=== PATIENT | male | born 1975 | race Caucasian/White ===

== ENCOUNTER 2016-11-24 07:03 | Day surgery (SDC) | payer BC ==
[~2016-11-24] VITALS: Ht 170.2 cm; Wt 86.2 kg
--- NOTE | ~2016-11-24 | O ---
[facility] [place] [address] OPERATIVE REPORT Name: LIBORIO BURNS Room #: 150-7 [facility]..#: [id number] Admission: 11/24/16 Attend Phys: Brian Calvin MD Discharge: Date of : 79 Report #: [id number] THIS REPORT FOR: //name// CC: Narcisa Calvin DATE OF SERVICE: 11/24/2016 PREOPERATIVE DIAGNOSIS: Right knee horizontal lateral meniscus tear with parameniscal cyst. POSTOPERATIVE DIAGNOSIS: Right knee horizontal lateral meniscus tear with parameniscal cyst. PROCEDURES: 1. Right knee arthroscopy with partial lateral meniscectomy. 2. Open excision of right knee parameniscal cyst, lateral. SURGEON: Brian Calvin M.D. INSPECTOR PACKER: Yvonne Pinto PA-C. ANESTHESIA: LMA. TOURNIQUET TIME: Approximately 45 minutes. COMPLICATIONS: None. SPECIMENS: Cystic structure was sent to pathology. CONDITION UPON LEAVING THE OR: Stable. INDICATIONS FOR PROCEDURE: The patient is a 41-year-old gentleman who has had lateral-sided right knee pain. An MRI scan showing him to have a horizontal lateral meniscus tear of the body with a large lateral parameniscal cyst. After discussion with him, he elected for right knee arthroscopy with partial lateral meniscectomy and local excision of the parameniscal cyst. DESCRIPTION OF PROCEDURE: Risks, benefits, alternatives and complications were discussed in detail with the patient, including but not limited to, risk of anesthesia; risk of damage to nerves, arteries, blood vessels; risk for infection, bleeding; risk for continued knee pain and need for reoperation. Informed consent was obtained from the patient. The right knee was appropriately marked in the preoperative holding area. IV Ancef was given for preoperative antibiotics. He was brought to the operating room and placed in the supine position on the operating room table. LMA anesthesia was induced [facility] [address] [place] [address] OPERATIVE REPORT Name: LIBORIO BURNS Room #: 150-7 [facility]..#: [id number] Admission: 11/24/16 Attend Phys: Brian Calvin MD Discharge: Date of : 79 Report #: [id number] without complication. Tourniquet was placed on the right thigh. Right lower extremity was prepped and draped in normal sterile fashion. Timeout was performed properly identifying the patient, procedure as well as the instrumentation. All in the operating room were in agreement. The right lower extremity was exsanguinated, tourniquet was inflated. Tourniquet time was approximately 45 minutes. We decided to excise the cyst first. So, a lateral longitudinal incision was made with 15 blade through the skin. Dissection was taken down to the fascia and a lateral parapatellar incision was made. Upon entering the deep tissues, there was a cystic structure that was dissected out and excised. This was sent to pathology. Attention was then turned to arthroscopy of the knee and a standard anterolateral portal was established through the previous incision and diagnostic arthroscopy was then undertaken. Patellofemoral compartment was visualized and found to be without pathology. Medial gutter was visualized and found to be without pathology. Medial compartment was visualized and a medial portal was established under arthroscopic visualization. Probe was introduced into the medial compartment. There was noted to be intact medial meniscus. The notch was visualized and found to have an intact anterior cruciate ligament. Lateral compartment was visualized and found to have a horizontal-type tear basically from the popliteal hiatus around to the junction of the anterior horn and body of the lateral meniscus. This was then resected with an arthroscopic biter and smoothed back with an oscillating shaver. We essentially took out the anterior half of the body of the lateral meniscus. After this, all fluid was allowed to drain from the knee. The knee was injected with 10 mL of 0.5% Marcaine. The lateral parapatellar arthrotomy was closed with 0 Vicryl, skin was closed with 2-0 Vicryl and 3-0 Monocryl. Steri-Strips were applied. The patient tolerated this procedure well and went to the recovery room under the care of anesthesia postoperatively. <ELECTRONICALLY SIGNED> By: Brian Calvin MD 11/25/16 1147 1203 1248 Brian Calvin MD /nt
--- NOTE | ~2016-11-24 | EKG ---
[address] [address] ELECTROCARDIOGRAM REPORT Name: LIBORIO BURNS Room #: 150-7 [facility].#: [id number] Admission: 11/24/16 Attend Phys: Brian Calvin MD Discharge: Date of : 79 Report #: [id number] THIS REPORT FOR: //name// [facility] Test Date: 2016-11-24 Test Time: 08:14:02 Pat Name: LIBORIO BURNS Department: Room: 150 7 Gender: M Director Of Cardiology Service Line: SAMUEL : 1975 Requested By: Brian Calvin Order Number: [id number] MD: Luís Rios Measurements Intervals [place] Rate: 74 P: 70 ND: 151 QRS: -12 QRSD: 83 T: 17 QT: 351 QTc: 390 Interpretive Statements Sinus rhythm Poor R wave progression No previous ECG available for comparison Electronically Signed On 11-25-2016 8:48:00 CDT by Luís Rios [email or web address] <ELECTRONICALLY SIGNED> By: Luís Rios MD, [facility] 11/25/16 0848 3 Luís Rios MD, FACC /EPI
--- NOTE | ~2016-11-24 | S ---
[facility] [place] [address] SURGICAL PATH RPT PROCEDURE Name: LIBORIO BURNS Room #: DEP [facility]..#: [id number] Admission: 11/24/16 Date of : 79 Discharge: 11/24/16 Report #: [id number] Path Case #: [id number] PATHOLOGY REPORT COLLECTION DATE: 11/24/2016 RECEIVED DATE: 11/24/2016 SUBMITTING PHYS: Dr. Brian Calvin OTHER PHYS: Dr. Narcisa Gardner SPECIMEN(S) RECEIVED: A.Perimeniscal cyst * * * * * * * * * * * * FINAL DIAGNOSIS: Perimeniscal cyst, right knee, excision: - Fragments of cyst lined by thin attenuated epithelium as well as dense fibrous tissue with myxoid changes. (IUV:nicky; 11/28/2016) PATHOLOGIST: Marivel Maldonado M.D. REPORT ELECTRONICALLY SIGNED BY: Marivel Maldonado M.D. DATE/TIME: 11/28/2016 16:57 * * * * * * * * * * * * GROSS PATHOLOGY: The specimen is received in formalin, labeled "Liborio Burns, perimeniscal cyst" and consists of two portions of pink-stevenson to luevano, lobulated, nodular tissue with associated adipose tissue measuring 2.0 x 1.0 x 0.4 cm. The cut surface is stevenson-white to pink red and whorled. A collapsed cyst is identified on the cut surface measuring 0.8 cm in greatest dimension. No additional abnormalities are noted. The specimen is serially sectioned and entirely submitted in cassette A1. (JWP; 11/25/2016) CLINICAL HISTORY: Right knee meniscus tear INITIAL CPT CODE(S): A; 97354 Professional services performed by [facility] at [facility] [address] , [place] [address] Technical services performed by [facility] at [address] [place] [address], [facility] [address] [address]. [facility] [address] [place] [address] SURGICAL PATH RPT PROCEDURE Name: LIBORIO BURNS Room #: [facility] M..#: [id number] Admission: 11/24/16 Date of : 79 Discharge: 11/24/16 Report #: [id number] Path Case #: [id number] [facility] [address] [place] [id number] PHONE: [phone] DIRECTOR: Helio Hilliard M.D. * * * END OF REPORT * * *
[~2016-11-24 07:03] MED LIST: FISH OIL 1,001000 M2 PO; HYDROCHLOROTHIA25 M2 PO; LIPITOR 20 MG T20 M1 PO; MULTIVITAMINS1 EAC7 PO
[2016-11-24 08:07] LABS: CALCIUM 9.7 mg/dL (8.5-10.1); CREATININE 1.3 mg/dL (0.7-1.3); POTASSIUM 4.2 mmol/L (3.5-5.1)
[2016-11-24 08:30] VITALS: BP 131/85
== END 2016-11-24 12:50 | disposition home or self-care (01) ==
LOC: OR 07:03 → TBA 07:03 → OR 12:14
PROVIDERS: Orthopaedic Surgery
DX: S83.282A Other tear of lateral meniscus, current injury, left knee, initial encounter (principal); I10 Essential (primary) hypertension; E78.5 Hyperlipidemia, unspecified; Z87.891 Personal history of nicotine dependence; Z98.890 Other specified postprocedural states; Z79.899 Other long term (current) drug therapy; X58.XXXA Exposure to other specified factors, initial encounter; Y93.89 Activity, other specified; Y92.89 Other specified places as the place of occurrence of the external cause; Y99.8 Other external cause status
CPT/HCPCS: 50010; 50101; 50405; 51038; 54170; 56524; 56526; 56527; 62110; 62900; 64041; 70005